=== PATIENT | male | born 1970 | race Hispanic/Latino ===

== ENCOUNTER 2025-02-14 13:22 | Emergency (ER) | payer SELFPAY ==
[2025-02-14] MEDS ORDERED: NA CHLORIDE 0.9% 1,000 ML ONE (14:26)
[2025-02-14] MEDS ORDERED: KETOROLAC 30 MG/ML INJ ONE (14:26)
[2025-02-14 14:28] LABS: Absolute Lymphocytes (CBC) 1.3 K/uL (0.7-4.9); Hematocrit 42.2 % (39.6-49.0); Hemoglobin 14.6 g/dL (13.6-17.9); MCH 29.1 pg (27.0-35.0); MCHC 34.7 g/dL (32.0-36.0); MCV 83.8 fL (80-100); MPV 6.8 fL (7.6-11.3); Nucleated RBC Absolute Count 0.0 (0-0); Nucleated Red Blood Cells % 0.0 % (0-0); RBC Red Blood Cell Count 5.03 M/uL (4.33-5.43); White Blood Count 10.20 thou/uL (4.3-10.9)
[2025-02-14 14:45] LABS: ALT/SGPT 45.0 U/L (16-61); AST/SGOT 22.0 U/L (15-37); Albumin 4.0 g/dL (3.4-5.0); Albumin/Globulin Ratio 1.1 (1.1-1.8); Alkaline Phosphatase 90.0 U/L (45-117); Anion Gap 8.9 mEq/L (5.0-15.0); BUN Blood Urea Nitrogen 11.0 mg/dL (7-18); Globulin 3.8 g/dL (2.3-3.5); Glucose Level 124.0 mg/dL (74-106); Lipase 24.0 U/L (13-75); Potassium 3.9 mEq/L (3.5-5.1)
--- NOTE | 2025-02-14 15:17 | RAD REPORT ---
EXAMINATION: Stone Protocol CLINICAL INDICATION: Abdominal pain TECHNIQUE: CT abdomen and pelvis was performed, without IV contrast, as per department protocol. Oral contrast not given. Axial, sagittal and coronal reconstructions were obtained. One or more of the following dose reduction techniques were used: Automated exposure control, adjustment of the mA and k V according to the patient size, and iterative reconstruction. Unless otherwise specified, incidental findings do not require dedicated imaging follow-up. COMPARISON: No prior exam. FINDINGS: The lack of intravenous and oral contrast limits the sensitivity of this exam for evaluation of solid visceral organs, vascular structures, and bowel Mild right hydronephrosis. Right ureter dilated. 3 mm calculus right UPJ. No left renal calculus. Multiple gallstones without gallbladder wall thickening. Liver, spleen, pancreas and adrenals grossly normal No evidence of diverticulitis. Normal appendix Stippled lesion L2 vertebral body probably a hemangioma IMPRESSION: 3 mm calculus right UVJ with mild right hydronephrosis
--- NOTE | 2025-02-14 16:12 | EDPHYS ---
Physician Documentation [facility] Name: Fransisco De Leon Age: 54 yrs Sex: Male : 1970 Arrival Date: 02/14/2025 Time: 13:22 Bed 26 Private MD: CORTNEY Physician Harjinder Villagomez HPI: 02/14 17:13 This 54 yrs old Male presents to ER via Ambulatory with complaints of Back dr5 Pain. 17:13 The patient presents with pain that is acute, with no known mechanism of injury. The dr5 symptoms are located in the right low back. Onset: The symptoms/episode began/occurred acutely. Patient is a 54-year-old male with no past medical history coming in with right flank pain that started acutely this morning. Patient states that the pain is intermittent and he noticed that his urine was a bit darker. Patient reports that he gets nauseous whenever the pain hits his right flank. Patient denies any other symptoms. Patient denies chest pain, shortness of breath, vomiting, diarrhea, diarrhea.. Historical: - Allergies: 13:35 PENICILLINS; ll1 - PMHx: 13:35 None; ll1 - PSHx: 13:35 hernia repair; ll1 - Immunization history:: Adult Immunizations up to date. - Social history:: Smoking status: Patient denies any tobacco usage or history of. ROS: 17:13 Constitutional: as per hpi dr5 Exam: 17:14 Constitutional: This is a well developed, well nourished patient who is awake, alert, dr5 and in no acute distress. Head/Face: Normocephalic, atraumatic. Eyes: Pupils equal round and reactive to light, extra-ocular motions intact. Lids and lashes normal. Conjunctiva and sclera are non-icteric and not injected. Cornea within normal limits. Periorbital areas with no swelling, redness, or edema. Neck: Trachea midline, no thyromegaly or masses palpated, and no cervical lymphadenopathy. Supple, full range of motion without nuchal rigidity, or vertebral point tenderness. No Meningismus. Chest/axilla: Normal chest wall appearance and motion. Nontender with no deformity. No lesions are appreciated. Cardiovascular: Regular rate and rhythm with a normal S1 and S2. Normal PMI, no JVD. No pulse deficits. Respiratory: Lungs have equal breath sounds bilaterally, clear to auscultation. No rales, rhonchi or wheezes noted. No increased work of breathing, no retractions or nasal flaring. Abdomen/GI: Soft, non-tender, non-distended Back: No spinal tenderness. No costovertebral tenderness. Full range of motion. Skin: Warm, dry with normal turgor. Normal color with no rashes, no lesions, and no evidence of cellulitis. MS/ Extremity: Pulses equal, no cyanosis. Neurovascular intact. Full, normal range of motion. Neuro: Awake and alert, GCS 15, oriented to person, place, time, and situation. Cranial nerves II-XII grossly intact. Motor strength 5/5 in all extremities. Sensory grossly intact. Cerebellar exam normal. Normal gait. 17:20 Neuro: Exam negative for acute changes, dr5 Vital Signs: 13:35 BP 156 / 87; Pulse 72; Resp 16; Temp 97.9; Pulse Ox 99% ; Weight 104.33 kg; Height 6 ll1 ft. 4 in. ; Pain 5/10; 16:36 BP 138 / 89; Pulse 68; Resp 16; Pulse Ox 98% on R/A; jb4 13:35 Body Mass Index 28.00 (104.33 kg, 193.04 cm) ll1 13:35 Pain Scale: Adult ll1 MDM: 13:30 Medical Screening Exam initiated dr5 17:14 Differential diagnosis: arthritis, sprain, Ureterolithiasis. Data reviewed: vital dr5 signs, nurses notes, lab test result(s), amylase and lipase, CBC, white blood cell count, hemoglobin, hematocrit, platelets, electrolytes, sodium, potassium, chloride, serum bicarbonate, BUN, creatinine, serum glucose, urinalysis, radiologic studies, CT scan. Consideration of Admission/Observation Escalation of care including admission/observation considered. Escalation considered patient found to have kidney stone that was too big to pass.. I considered the following discharge prescriptions or medication management in the emergency department I discussed and recommended Over The Counter medications, Medications were administered in the Emergency Department. See MAR. Care significantly affected by the following Social Determinants of Health: Poor access to healthcare and/or lack of insurance, Poor access to transportation, Problems related to employment. Counseling: I had a detailed discussion with the patient and/or guardian regarding the historical points, exam findings, and any diagnostic results supporting the discharge/admit diagnosis, the presence of at least one elevated blood pressure reading (>120/80) during this emergency department visit, lab results, radiology results, the need for outpatient follow up, for definitive care, a family practitioner, a urologist, to return to the emergency department if symptoms worsen or persist or if there are any questions or concerns that arise at home. Medication response: Toradol relieved patient's pain. The symptoms have resolved. Response to treatment: the patient's symptoms have resolved after treatment, the patient's condition has returned to base line, the patient is now symptom free. Special discussion: I have referred the patient to see his PCP for further evaluation of high blood pressure. I discussed with the patient/guardian in detail that at this point there is no indication for admission to the hospital. It is understood, however, that if the symptoms persist or worsen the patient needs to return immediately for re-evaluation. Based on the history and exam findings, there is no indication for further emergent testing or inpatient evaluation. I discussed with the patient/guardian the need to see the urologist for further evaluation of the symptoms. ED course: I gave patient strainer to urinate and to to catch stone. Explained all results to patient and printed and given to him to take to urologist. Give him pain medication as well as Flomax to aid in passing stone. Recommended patient follow-up with urologist. All questions answered. Will also cover patient for with antibiotics for urinary tract infection prevention. Strict ER precautions given. 02/14 13:49 Order name: CBC with Diff; Complete Time: 14:34 [facility] 02/14 13:49 Order name: CMP; Complete Time: 14:56 dr5 02/14 13:49 Order name: Lipase; Complete Time: 14:56 [facility] 02/14 16:13 Order name: UA Rfx Reinaldo Cult if indicated dr5 02/14 13:49 Order name: CT Stone Protocol; Complete Time: 15:18 [facility] 02/14 13:49 Order name: IV Saline Lock; Complete Time: 14:24 [facility] 02/14 13:49 Order name: Labs collected and sent; Complete Time: 14:24 dr5 Administered Medications: 14:37 Drug: NS 0.9% IV 1000 ml IV at 1 bolus Per protocol; to be given as a bolus over 60 jb4 minutes Route: IV; Rate: 1 bolus; Site: right antecubital; 15:37 Follow up: Response: No adverse reaction; IV Status: Completed infusion; IV Intake: jb4 1000ml 14:38 Drug: TORadol - Ketorolac IVP 15 mg IVP once Route: IVP; Site: right antecubital; jb4 15:00 Follow up: Response: No adverse reaction; Marked relief of symptoms; Pain is decreased jb4 16:35 Not Given (Patient Refused): ondansetron 4 mg IVP once; over 2 minutes jb4 16:35 Not Given (Patient Refused): morphineor iv 4 mg IVP once over 4 mins jb4 Disposition Summary: 02/14/25 16:12 Discharge Ordered Notes: Location: Home dr5 Condition: Stable dr5 Diagnosis - Kidney Stone/ Calculus in urethra dr5 Followup: dr5 - With: Emergency Department - When: As needed - Reason: Worsening of condition Followup: dr5 - With: Babak Ackerman MD - When: 1 - 2 days - Reason: Recheck today's complaints, Continuance of care, Re-evaluation by your physician Discharge Instructions: - Discharge Summary Sheet dr5 - Kidney Stones dr5 - Dietary Guidelines to Help Prevent Kidney Stones dr5 Forms: - Medication Reconciliation Form dr5 - Prescription Opioid Use dr5 - Patient Portal Instructions dr5 - Leadership Thank You Letter dr5 Prescriptions: - Flomax 0.4 mg Oral capsule - take 1 capsule ORAL route daily; 30 capsule; Refills: 0, Product Selection dr5 Permitted - Tramadol 50 mg Oral Tablet - take 1 tablet ORAL route every 8 hours as needed; 12 tablet; Refills: 0, dr5 Product Selection Permitted - cefpodoxime 100 mg Oral Tablet - take 1 tablet ORAL route every 12 hours for 10 days take with food; 20 tablet; dr5 Refills: 0, Product Selection Permitted Signatures: Dispatcher [employer] George Carmona, RN RN jb4 Agustin Aquino RN RN ll1 Lyndon Higgins, BASS GUITAR TEACHER-C BASS GUITAR TEACHER-Cdr5
--- NOTE | 2025-02-14 16:12 | ER ---
Nurse's Notes [facility] Name: Fransisco De Leon Age: 54 yrs Sex: Male : 1970 Arrival Date: 02/14/2025 Time: 13:22 Bed 26 Private MD: Diagnosis: Kidney Stone/ Calculus in urethra Presentation: 02/14 13:35 Chief complaint: Patient states: R lower back pain started today. + N/V, dysuria, and ll1 urine darker in color than normal. Coronavirus screen: Client denies travel out of the [place] in the last 14 days. At this time, the client does not indicate any symptoms associated with coronavirus-19. Ebola Screen: Patient denies travel to an Ebola-affected area in the 21 days before illness onset. Initial Sepsis Screen: Does the patient meet any 2 criteria? No. Patient's initial sepsis screen is negative. Does the patient have a suspected source of infection? No. Patient's initial sepsis screen is negative. Risk Assessment: Do you want to hurt yourself or someone else? Patient reports no desire to harm self or others. Onset of symptoms was February 14, 2025. 13:35 Method Of Arrival: Ambulatory ll1 13:35 Acuity: COURTNEY 3 ll1 Historical: - Allergies: 13:35 PENICILLINS; ll1 - PMHx: 13:35 None; ll1 - PSHx: 13:35 hernia repair; ll1 - Immunization history:: Adult Immunizations up to date. - Social history:: Smoking status: Patient denies any tobacco usage or history of. Screenin:36 [facility] ED Fall Risk Assessment (Adult) History of falling in the last 3 months, jb4 including since admission No falls in past 3 months (0 pts) Confusion or Disorientation No (0 pts) Intoxicated or Sedated No (0 pts) Impaired Gait No (0 pts) Mobility Assist Device Used No (0 pt) Altered Elimination No (0 pt) Score/Fall Risk Level 0 - 2 = Low Risk Oriented to surroundings, Maintained a safe environment. Abuse screen: Denies threats or abuse. Nutritional screening: No deficits noted. Tuberculosis screening: No symptoms or risk factors identified. Assessment: 13:45 General: Appears in no apparent distress. uncomfortable, Behavior is calm, cooperative, jb4 appropriate for age. Pain: Complains of pain in right low back Pain radiates to right lower quadrant Pain currently is 5 out of 10 on a pain scale. Neuro: Level of Consciousness is awake, alert, obeys commands, Oriented to person, place, time, situation. Cardiovascular: Patient's skin is warm and dry. Respiratory: Airway is patent Respiratory effort is even, unlabored, Respiratory pattern is regular, symmetrical. Derm: Skin is intact, Skin is pink, warm \T\ dry. 14:40 Reassessment: Patient appears in no apparent distress at this time. Patient and/or jb4 family updated on plan of care and expected duration. Pain level reassessed. Patient is alert, oriented x 3, equal unlabored respirations, skin warm/dry/pink. 15:51 Reassessment: Patient appears in no apparent distress at this time. Patient and/or jb4 family updated on plan of care and expected duration. Pain level reassessed. Patient is alert, oriented x 3, equal unlabored respirations, skin warm/dry/pink. Patient states feeling better. 16:36 Reassessment: Patient appears in no apparent distress at this time. Patient and/or jb4 family updated on plan of care and expected duration. Pain level reassessed. Patient is alert, oriented x 3, equal unlabored respirations, skin warm/dry/pink. Patient states feeling better. Patient states symptoms have improved. Vital Signs: 13:35 BP 156 / 87; Pulse 72; Resp 16; Temp 97.9; Pulse Ox 99% ; Weight 104.33 kg; Height 6 ll1 ft. 4 in. ; Pain 5/10; 16:36 BP 138 / 89; Pulse 68; Resp 16; Pulse Ox 98% on R/A; jb4 13:35 Body Mass Index 28.00 (104.33 kg, 193.04 cm) ll1 13:35 Pain Scale: Adult ll1 ED Course: 13:26 Patient arrived in ED. al6 13:27 Arm band placed on Patient placed in an exam room, on a stretcher. ll1 13:29 Lyndon Higgins FNP-C is PHCP. dr5 13:29 Harjinder Villagomez MD is Attending Physician. dr5 13:37 Triage completed. ll1 14:17 CT Stone Protocol In Process Unspecified. EDMS 14:24 CBC with Diff Sent. jb4 14:25 CMP Sent. jb4 14:25 Lipase Sent. jb4 16:12 Babak Ackerman MD is Referral Physician. dr5 16:36 Patient has correct armband on for positive identification. Bed in low position. Call jb4 light in reach. Side rails up X 1. Provided Education on: discharge instructions.. 16:36 No provider procedures requiring assistance completed. IV discontinued, intact, jb4 bleeding controlled, No redness/swelling at site. Pressure dressing applied. Administered Medications: 14:37 Drug: NS 0.9% IV 1000 ml IV at 1 bolus Per protocol; to be given as a bolus over 60 jb4 minutes Route: IV; Rate: 1 bolus; Site: right antecubital; 15:37 Follow up: Response: No adverse reaction; IV Status: Completed infusion; IV Intake: jb4 1000ml 14:38 Drug: TORadol - Ketorolac IVP 15 mg IVP once Route: IVP; Site: right antecubital; jb4 15:00 Follow up: Response: No adverse reaction; Marked relief of symptoms; Pain is decreased jb4 16:35 Not Given (Patient Refused): ondansetron 4 mg IVP once; over 2 minutes jb4 16:35 Not Given (Patient Refused): morphineor iv 4 mg IVP once over 4 mins jb4 Medication: 16:36 VIS not applicable for this client. jb4 Intake: 15:37 IV: 1000ml; Total: 1000ml. jb4 Outcome: 16:12 Discharge ordered by . dr5 16:36 Discharged to home ambulatory, jb4 16:36 Condition: stable 16:36 Discharge instructions given to patient, Instructed on discharge instructions, follow up and referral plans. no drinking with medication, no driving heavy equipment, medication usage, Demonstrated understanding of instructions, follow-up care, medications, Prescriptions given X 3, 16:38 Patient left the ED. jb4 Signatures: Dispatcher [employer] EDMS George Tipton RN RN jb4 Agustin Aquino RN RN ll1 Lyndon Higgins, TIME PIECE REPAIRER-C TIME PIECE REPAIRER-[facility]5 Beth Dominguez6
[2025-02-14 16:52] LABS: Sqamous Epithelial None Seen /HPF (None Seen); Urine Crystals Unidentified Few /HPF (None Seen); Urine Culture Reflex Order NOT NEEDED; Urine Microscopic Reflex YN ORDER UMIC; Urine Yeast (Budding) Trace /HPF (None Seen)
[2025-02-14 19:27] VITALS: TEMP 97.9
[2025-02-14 19:30] VITALS: BP 138/89; O2SAT 98
== END 2025-02-14 16:38 | disposition home or self-care (01) ==
LOC: ER 13:22
DX: N20.0 Calculus of kidney (principal); N21.1 Calculus in urethra
CPT/HCPCS: 36415; 74176; 76377; 80053; 81001; 83690; 85025; 96361; 96374; 99284; J7030